=== PATIENT | female | born 1935 | race Asian ===

== ENCOUNTER 2016-09-12 01:45 | Emergency (ER) | payer OTHER ==
[2016-09-12 02:08] VITALS: BP 175/82
--- NOTE | 2016-09-12 02:49 | PROVIDER DOCUMENTATION ---
HPI-Respiratory General - General Chief Complaint: Shortness of Breath Stated Complaint: SOB Time Seen by Provider: 09/12/16 02:09 Source: patient Allergies/Adverse Reactions: Patient Allergies Allergy/AdvReac Type Severity Reaction Status Date / Time No Known Allergies Allergy Verified 09/05/16 06:05 Home Medications: Alendronate [Fosamax] 70 mg PO Q7D 08/22/13 FOSINOpril [Monopril] 20 mg PO DAILY 08/22/13 Fenofibric Acid [Fibricor] 135 mg PO DAILY 08/22/13 Nifedipine [Nifedipine ER] 30 mg PO DAILY 08/22/13 Ergocalciferol (Vitamin D2) [Vitamin D] 50,000 unit PO DAILY 11/01/14 Fluticasone 50 Mcg Nasal [place] [Flonase] 1 spray DIRK DAILY 11/01/14 Guaifenesin/Pse E.r. [Mucinex D] 1 each PO DAILY 11/01/14 Levofloxacin 500 mg PO DAILY 11/01/14 Metoclopramide [Reglan] 5 mg PO DAILY 11/01/14 Metoprolol [Lopressor] 100 mg PO DAILY 11/01/14 PRAVAstatin [Pravachol] 80 mg PO QHS 11/01/14 - History of Present Illness-Resp Nature of Presenting Problem: 80 year old F presents to the ED with a cc of shortness of breath. Pt states that she woke short of breath. PT states that she took 2 Tylenol and started breathing fast. PT states that she now feels better. PT states that she has left fractured ribs. PT states that she was also suppose to have her mary removed today. Severity in ED: reports: mild Onset/Duration: reports: this morning Timing: reports: still present Exposure: reports: unknown cause Cough Quality/Degree: reports: no cough Episode Frequency: no prior episodes Current Respiratory Medication Therapy: Initiated see nurses note Associated Symptoms: reports: short of breath Similar Symptoms Previously?: No Recently seen or treated by another doctor?: Yes Review of Systems - Adult - REVIEW OF SYSTEMS - ADULT Constitutional: denies: chills, fever Eyes: reports: no symptoms reported Ears, Nose, Mouth & Throat: reports: no symptoms reported Cardiovascular: reports: no symptoms reported Respiratory: reports: shortness of breath. denies: cough Gastrointestinal: denies: nausea, vomiting Genitourinary: reports: no symptoms reported Musculoskeletal: denies: muscle aches, muscle weakness Integumentary: denies: skin sores/ulcer, skin thickening Neurological: reports: no symptoms reported Psychiatric: reports: no symptoms reported Endocrine: reports: no symptoms reported Hematologic/Lymphatic: reports: no symptoms reported Allergic/Immunologic: reports: no symptoms reported All Other Systems: Reviewed and Negative Past History - Adult - PAST MEDICAL HISTORY-ADULT Review of Records: reports: Nursing Assessment Review, Medications Reviewed Major Childhood Illnesses: reports: denies history Cardiovascular: reports: HTN, hyperlipidemia Musculoskeletal: reports: arthritis (osteo) - PRIOR SURGERIES/PROCEDURES Surgical/Procedure History: reports: none - IMMUNIZATION STATUS Childhood Immunizations: See Nurse Assessment Flu Vaccine: See Nurse Assessment - FAMILY HISTORY Family History: reviewed, not pertinent - SOCIAL HISTORY Smoking: non-smoker Substance Use: none/never Alcohol Use Frequency: never Physical Exam-General - PHYSICAL EXAM-ADULT Initial Vital Signs Reviewed: Yes - CONSTITUTIONAL General Appearance: appears well, alert, no apparent distress - HEAD, EARS, NOSE, MOUTH & THROAT HENMT: other (mary to scalp, well healed) - RESPIRATORY Respiratory: lungs clear, normal breath sounds, other (left ribs along axillary line) - CARDIOVASCULAR Cardiovascular: normal peripheral pulses, regular rate, rhythm, no edema - MUSCULOSKELETAL Extremity: normal inspection - SKIN Integumentary: normal color, normal turgor, warm/dry - PSYCHIATRIC Psych/Mental Status: normal mood/affect, normal thought content, normal thought process, oriented x 3 Progress - PLAN OF CARE/RESULTS Progress/Plan/Lab Results: plan of care: imaging, EKG, staple removal Orders Category Date Time Status CHEST-2 VIEWS [RAD] Stat Exams 09/12/16 02:11 Taken EKG [EKG] Stat Ther 09/12/16 01:54 Ordered Vital Signs - 24 hr 09/12/16 02:04 Temperature 97.6 F Pulse Rate 70 Respiratory 18 Rate Blood Pressure 175/82 O2 Sat by Pulse 99 Oximetry Pt given results and will be d/c home w/o rx to follow up with PCP. Pt verbally understood instructions. PT remained clinically stable throughout the course of the ED stay and will return if symptoms worsen. - EKG 1 Time of EKG reading by physician:: 02:00 EKG Read and Signed by:: Lokesh F. O'Meara EKG Interpretation (*Must complete 3 of following elements*): Normal Rate: 73 Rhythm: NSR [place]: normal - XRAY 1 XRAY Study: Chest Impression: Abnormal (L fractured ribs and distal clavical fx as noted before, small left pleural effusion:Dr. Cabral) Departure - Departure Time of Disposition Order: 02:51 DIAGNOSIS: Rib fractures Qualifiers: Encounter type: subsequent encounter Rib fracture type: multiple ribs Fracture type: closed Laterality: left Fracture healing: with routine healing Qualified Code(s): S22.42XD - Multiple fractures of ribs, left side, subsequent encounter for fracture with routine healing Disposition: HOME 01 Certified Medical Emergency: Emergent Condition: Good Additional Instructions: Follow up with primary care doctor. Return to ED for any new or worsening symptoms. ED Follow Up Instructions: You have been treated by a care provider in the Emergency Department. These instructions are being provided to you so you can have an understanding of how to care for yourself upon discharge. Upon discharge from the Emergency Department, you are responsible for making arrangements for follow-up care by a physician of your choice. Take all prescribed medications as directed. Return to the Emergency Department immediately for any new or worsening symptoms. You may call the Physician Referral phone number at [phone] to obtain a list of Physicians who are taking new patients. Referrals: Rashad Cassidy Jr, MD [Primary Care Provider] - Attestation - Scribe Verification/Attestation Scribe:: Vee Lambert Acting as Scribe for:: Lokesh Cabral Scribe documention review:: This chart was documented by a scribe and accurately reflects the service the provider performed and the decisions made by the provider. Physician Attestation - Physician Attestation I, the provider, attest to the following statement:: Lokesh Cabral Physician documentation Attestation:: This documentation recorded by the scribe accurately reflects the service I personally performed and the decisions made by me.
--- NOTE | 2016-09-12 05:50 | EKG Report ---
Test Performed on : 09/12/2016 02:00:10 AM Test Reason : SOB Blood Pressure : / mmHG Vent. Rate : 073 BPM Atrial Rate : 073 BPM P-R Int : 178 ms QRS Dur : 084 ms QT Int : 398 ms P-R-T Axes : 042 -09 051 degrees QTc Int : 438 ms Normal sinus rhythm. Normal ECG When compared with ECG of 01-NOV-2014 02:34, No significant change was found Unconfirmed Result
--- NOTE | 2016-09-12 09:03 | Diag Imaging Result Document ---
PROCEDURE NAME: CHEST-2 VIEWS - 09/12/2016 PA AND LATERAL RADIOGRAPHS OF THE CHEST: COMPARISON: 09/05/2016. FINDINGS: Healing left rib fractures are again noted, stable. There is trace pleural fluid at the left lung base. There is no evidence of pneumothorax. There has been development of mild linear atelectasis at the right lung base. Cardiac silhouette and central vasculature are unremarkable. IMPRESSION: Development of trace pleural fluid on the left and minimal subsegmental atelectasis at the right lung base.
== END 2016-09-12 03:02 | disposition home or self-care (01) ==
LOC: ED 01:45
DX: S22.42XD Multiple fractures of ribs, left side, subsequent encounter for fracture with routine healing (principal); R06.02 Shortness of breath; I10 Essential (primary) hypertension; E78.5 Hyperlipidemia, unspecified; M19.90 Unspecified osteoarthritis, unspecified site; Z79.899 Other long term (current) drug therapy; Z79.51 Long term (current) use of inhaled steroids; J90 Pleural effusion, not elsewhere classified; J98.11 Atelectasis
CPT/HCPCS: 71020; 93005; 99283

== ENCOUNTER 2019-06-07 18:17 | Observation (INO) ==
[2019-06-07] MEDS ORDERED: CATAPRES PO ONE (18:34)
[2019-06-07 20:30] LABS: BASO# 0.03 X1000 (0.0-0.2); BASO% 0.3 % (0.0-0.8); EOS# 0.09 X1000 (0.0-0.7); HEMATOCRIT 41.4 % (37.0-47.0); HEMOGLOBIN 13.6 g/dL (12.0-16.0); LYMPH# 4.54 X1000 (1.2-3.4); LYMPH% 51.9 % (20.5-51.1); MCH 29.8 PG (27-31); MCHC 32.9 g/dL (33-37); MCV 90.6 FL (81-99); MONO# 0.66 X1000 (0.11-0.59); MONO% 7.6 % (1.7-9.3); MPV 9.9 FL (7.4-10.4); NEUT# 3.42 X1000 (1.4-6.5); NEUT% 39.2 % (42.2-75.2); PLT 262 X1000 (130-400); RBC 4.57 XMIL (4.2-5.4); RDW 13.9 % (11.5-14.5); WBC 8.74 X1000 (4.8-10.8)
[2019-06-07 20:37] LABS: INR 0.96; PROTIME 12.8 Seconds (11.0-16.0); PTT 31.8 Seconds (22.3-41.8)
[2019-06-07 20:55] LABS: ALB/GLOB RATIO 1.6; ALBUMIN 4.2 g/dL (3.5-5.0); CALCIUM 9.6 mg/dL (8.8-10.2); CREATININE 1.4 mg/dL (0.5-0.9); POTASSIUM 4.4 mmol/L (3.5-5.1); TOTAL BILIRUBIN 0.35 mg/dL (0.20-1.00); TOTAL PROTEIN 6.8 g/dL (6.3-8.3)
--- NOTE | 2019-06-07 21:11 | PROVIDER DOCUMENTATION ---
This chart was entered by Meron Roblero Scribe, acting as scribe for Yvette Gimenez MD. HPI-General Adult - General Chief Complaint: Low Blood Sugar Stated Complaint: LOW BLOOD SUGAR, Time Seen by Provider: 06/07/19 18:33 Source: patient, family Allergies/Adverse Reactions: Patient Allergies Allergy/AdvReac Type Severity Reaction Status Date / Time Sulfa (Sulfonamide Allergy Unknown Verified 06/07/19 19:23 Antibiotics) Home Medications: Home Medication List Medication Instructions Recorded Confirmed Last Taken Type Krill/Om-3/Dha/Epa/Phospho/Ast 1 cap PO DAILY 12/01/16 06/07/19 06/07/19 History [Krill Oil 500 mg Softgel] Metoprolol Succinate 100 mg PO BID 12/01/16 06/07/19 06/07/19 History Nifedipine [Nifedipine ER] 30 mg PO DAILY 12/01/16 06/07/19 06/07/19 History Rosuvastatin Calcium [Crestor] 40 mg PO QHS 12/01/16 06/07/19 06/06/19 History Ezetimibe [Zetia] 1 tab PO DAILY 08/02/18 06/07/19 06/07/19 History Sitagliptin [Januvia] 1 tab PO DAILY 08/02/18 06/07/19 06/07/19 History Glimepiride 1 dose PO BID 06/01/19 06/07/19 06/07/19 History Pioglitazone [Actos] 1 dose PO DAILY 06/01/19 06/07/19 06/07/19 History - History of Present Illness -Gen Adult Nature of Presenting Problems: 83 yof presents w/daughter at bedside w/cc low fsbs ongoing for few days. daughter sts pt fsbs other day was 34. pt took fbs at 1200 and it was 150. around 1300 ate potatoes and a hot dog, became dizzy, ate cereal and shrimp trawler captain fsbs was 20. pt had pepsi and tsp sugar shrimp trawler captain and is improving. pt sts she felt near syncope. pt has hx of dm, htn and high cholesterol. pt takes januvia, actos and glimeperide for dm.she was just started on one of these medications about 1 month ago and her symptoms started around then/ daughter sts pt was recently d/c from hospital for what dr's thought was possible tia's. pt had US of thyroid done and found nodules. will follow up w/dr. layo rodriguez. pt is a&ox3 and nontoxic in appearance. Location of Pain/Injury: reports: none Pain Radiation: reports: no radiation Quality of Pain: reports: none Onset/Duration: reports: this afternoon Timing: reports: improving, gone now Context/Activities at Onset: reports: none Associated Symptoms: reports: dizziness - Diabetes Related Context Context: reports: low blood sugar Review of Systems - Adult - REVIEW OF SYSTEMS - ADULT Constitutional: reports: no symptoms reported. denies: chills, fever, fatique Eyes: reports: no symptoms reported Ears, Nose, Mouth & Throat: reports: no symptoms reported Cardiovascular: reports: no symptoms reported Respiratory: reports: no symptoms reported Gastrointestinal: reports: no symptoms reported Genitourinary: reports: no symptoms reported Musculoskeletal: reports: no symptoms reported Integumentary: reports: no symptoms reported Neurological: reports: see HPI, dizziness/vertigo, syncope (near). denies: loss of balance, numbness, paresthesia Psychiatric: reports: no symptoms reported Endocrine: reports: see HPI, other (low fsbs 20 shrimp trawler captain). denies: increased hunger, increased thirst, polyuria Hematologic/Lymphatic: reports: no symptoms reported Allergic/Immunologic: reports: no symptoms reported All Other Systems: Reviewed and Negative Past History - Adult - PAST MEDICAL HISTORY-ADULT Review of Records: reports: Old Records Reviewed, Nursing Assessment Review, Medications Reviewed, Social history reviewed & non-contributory. Major Childhood Illnesses: reports: denies history Cardiovascular: reports: HTN, hyperlipidemia Respiratory: reports: denies history Gastrointestinal: reports: denies history Obstetrical/Gynecological: reports: denies history Genitourinary: reports: denies history Musculoskeletal: reports: arthritis (osteo) Neurological: reports: denies history Psychiatric: reports: denies history Endocrine/Immune: reports: Diabetes Diabetes controlled by:: PO Meds Other Conditions: reports: denies history - PRIOR SURGERIES/PROCEDURES Surgical/Procedure History: reports: none - IMMUNIZATION STATUS Childhood Immunizations: See Nurse Assessment Flu Vaccine: See Nurse Assessment - FAMILY HISTORY Family History: reviewed, not pertinent - SOCIAL HISTORY Smoking: non-smoker Substance Use: none/never Physical Exam-General - PHYSICAL EXAM-ADULT Initial Vital Signs Reviewed: Yes - CONSTITUTIONAL General Appearance: appears well, alert, no apparent distress, thin. negative: lethargic, slow to respond, obtunded - EYES Eyes: PERRL/EOMI, pink conjunctivae - HEAD, EARS, NOSE, MOUTH & THROAT HENMT: normocephalic/atraumatic, moist mucous membranes - NECK Neck: non-tender, full range of motion, supple, normal inspection - RESPIRATORY Respiratory: chest non-tender, lungs clear, normal breath sounds, no respiratory distress, no accessory muscle use - CARDIOVASCULAR Cardiovascular: normal peripheral pulses, regular rate, rhythm, no murmur - GASTROINTESTINAL (ABDOMEN) Abdominal Exam: normal bowel sounds, non tender, soft - LYMPHATIC Lymphatic: no adenopathy - MUSCULOSKELETAL Back Exam: normal inspection Extremity: normal range of motion, non-tender, normal gait, normal inspection Peripheral Pulses: radial (R): 2+, radial (L): 2+ - SKIN Integumentary: normal color, normal turgor, warm/dry - NEUROLOGIC Neurologic: grossly normal, no motor/sensory deficits - PSYCHIATRIC Psych/Mental Status: normal mood/affect, normal thought content, normal thought process, oriented x 3 Progress - PLAN OF CARE/RESULTS Progress/Plan/Lab Results: Vital Signs - 8 hr 06/07/19 18:39 Temperature 97.9 F Pulse Rate 78 Respiratory Rate 16 Blood Pressure 157/82 O2 Sat by Pulse Oximetry 99 Laboratory Results - last 24 hr 06/07/19 18:42 POC Glucose 129 H D Orders Category Date Time Status Blood Glucose Finger Stick [FSBS/Accucheck Result] Q1H Care 06/07/19 19:48 Active ED: Orthostatic Vital Signs (E as directed Care 06/07/19 19:48 Active CBC WITH ELECTRONIC DIFF [HEME] Stat Lab 06/07/19 19:47 Uncollected COMPREHENSIVE METABOLIC PANEL [CHEM] Stat Lab 06/07/19 19:47 Uncollected PROTIME WITH INR [COAG] Stat Lab 06/07/19 19:47 Uncollected PTT [COAG] Stat Lab 06/07/19 19:47 Uncollected TROPONIN T Stat Lab 06/07/19 19:47 Uncollected Clonidine [Catapres] Med 06/07/19 18:34 Discontinued 0.2 mg PO NOW ONE EKG [EKG] Stat Ther 06/07/19 19:47 Ordered Patient on glimepiride, Actos and januvia with hypoglymcemia at home. Given that she is on oral agents will need admission for oBS. Her recent admission for TIAs could actually be 2.2 to hypoglycemia at she stts that this medication was just started 1 month ago and she started to feel symptoms then. Labs showing nothing acute. COunseled patient and family on the need for admission and they agreed. Patient stable for floor. Spoke to Dr Crenshaw weekend receptionist for hospitalist who accepted patient for admission. Further orders to be placed by their team. Result Diagrams: 06/07/19 20:17 06/07/19 20:17 - EKG 1 Time of EKG reading by physician:: 21:05 EKG Read and Signed by:: Yvette Gimenez EKG Interpretation (*Must complete 3 of following elements*): Normal Rate: 74 Rhythm: NSR [place]: normal QRS: normal CO Interval: normal ST Wave: normal - CONSULTS/PCP/HOSPITALIST Notification #1 *Consult/PCP/Hospitalist*: Dr Crenshaw Time Discussed: 21:10 Consult Disposition: Admit Departure - Departure Date of Disposition Decision: 06/07/19 Time of Disposition Decision: 21:09 DIAGNOSIS: Hypoglycemia secondary to sulfonylurea Qualifiers: Encounter type: initial encounter Injury intent: accidental or unintentional Qualified Code(s): T38.3X1A - Poisoning by insulin and oral hypoglycemic [antidiabetic] drugs, accidental (unintentional), initial encounter Disposition: ADMITTED INPATIENT Certified Medical Emergency: Emergent Condition: Stable - Critical Care Note This patient required my direct & personal management of CC.: No Attestation - Physician/ ADRIA Attestation Patient care was provided by Advanced Practice Provider:: No The physician spent face to face time with patient:: Yes Advanced Practice Provider documentation review:: Supervising physician onsite and consulted in the evaluation and care of this patient. The physician did have a face to face encounter with the patient. This chart was documented by the indicated scribe, (Meron Roblero Scribe) and accurately reflects the services I performed and decisions made by me, Yvette Gimenez MD, as attested by the provider's signature.
--- NOTE | 2019-06-07 21:23 | EKG Report ---
Test Performed on : 06/07/2019 9:01:04 PM Test Reason : LOW BLOOD SUGAR Blood Pressure : / mmHG Vent. Rate : 074 BPM Atrial Rate : 074 BPM P-R Int : 190 ms QRS Dur : 082 ms QT Int : 394 ms P-R-T Axes : 037 -11 035 degrees QTc Int : 437 ms Normal sinus rhythm. Normal ECG When compared with ECG of 01-JUN-2019 12:05, (Unconfirmed) Criteria for Septal infarct are no longer present Unconfirmed Result
--- NOTE | 2019-06-07 22:06 | HISTORY AND PHYSICAL ---
PRIMARY CARE PHYSICIAN: Dr. Cassidy. CHIEF COMPLAINT: Low blood glucose. HISTORY OF PRESENTING ILLNESS: This 83-year-old elderly female with a history of diabetes mellitus type 2, hypertension, hyperlipidemia, who had presented to emergency department due to patient having an episode where her blood glucose was low. The patient states her blood glucose was around 20 and she felt kind of woozy. Her daughter gave her a Pepsi and some sugar and then she seemed to improve and subsequently had brought her to the emergency department. She was evaluated in the ED and due to the fact that she is on oral hypoglycemics it was thought that will place in for observation for further evaluation and management. At the time of my examination, patient denied any headache, fever, chills, chest pain, shortness of breath, hemoptysis, melena, weight changes. States she feels better. PAST MEDICAL HISTORY: Include diabetes mellitus type 2, hypertension, hyperlipidemia. PAST SURGICAL HISTORY: None. ALLERGIES: Sulfa. CURRENT MEDICATIONS: Include Zetia 10 mg p.o. daily, glimepiride 4 mg p.o. b.i.d., metoprolol 100 mg p.o. b.i.d., nifedipine 30 mg p.o. daily, Actos 15 mg p.o. daily, rosuvastatin 40 mg p.o. at bedtime, Januvia 50 mg p.o. daily. SOCIAL HISTORY: No history of smoking, alcohol or illicit drug use. FAMILY HISTORY: Positive for coronary disease mother. REVIEW OF SYSTEMS: Fourteen point review of system is as in HPI. Other systems negative. PHYSICAL EXAMINATION: GENERAL: Cooperative, friendly female. She is resting comfortably now. VITAL SIGNS: Temperature 97.9 degrees, pulse 78, respirations 16, blood pressure 157/82. HEENT: Atraumatic, normocephalic. Extraocular movements intact. PERRLA. NECK: Supple. CHEST: Clear to auscultation. CARDIOVASCULAR: Regular rate and rhythm. ABDOMEN: Soft. Positive bowel sounds. EXTREMITIES: No edema. NEURO: Nonfocal. : No bladder distention. SKIN: Warm. LABORATORIES AND STUDIES: WBC 8.74, hemoglobin 13.6, hematocrit 41.4, platelets 262,000. Sodium 141, potassium 4.4, chloride 104, CO2 24, BUN is 25, creatinine is 1.4, glucose is 226. ASSESSMENT: 83-year-old female with a history of diabetes mellitus type 2, hypertension, hyperlipidemia, who had presented to the emergency department due to patient having hypoglycemic episode. Apparently her blood glucose had come down to around 20s. She took some sugar and Pepsi and she had some improvement. She was evaluated in the emergency department. Due to patient being on oral hypoglycemic agents it was thought that will place in for observation for further evaluation management. 1. Diabetes mellitus type 2 with hypoglycemic episode. 2. Hypertension. 3. Hyperlipidemia. PLAN: 1. We will admit patient to medical floor with telemetry. 2. Continue to monitor blood glucose closely. 3. We will hold oral hypoglycemic agents. 4. Monitor blood pressure. Resume antihypertensive agent. 5. Restart other home medications. 6. Put patient on DVT prophylaxis SCD. 7. We will continue to follow reassess, make further recommendation based on patient's clinical course. cc: Aj Crenshaw MD
[2019-06-08] MEDS: TOPROL XL PO SCH ×3 (01:02→20:19)
[2019-06-08] MEDS: NS 1,000 ML IV SCH ×2 (01:02→12:46)
[2019-06-08] MEDS: CRESTOR PO SCH ×2 (01:03→20:19)
[2019-06-08] MEDS: ADALAT CC PO SCH (08:24)
[2019-06-08] MEDS: ZETIA PO SCH ×3 (08:25→08:28)
--- NOTE | 2019-06-08 09:11 | PROGRESS NOTE ---
DATE: 06/08/2019 SUBJECTIVE: The patient says she does not feel well. Blood sugars are still jumping around a good bit. Family members were there, including a son and a daughter, and we talked about alternative medications for her diabetes. She has been on Amaryl, Actos, and Januvia. She could not tolerate metformin, and did not want any further brand name medications initially. It is possible now with help of the family that she maybe can take something like Farxiga or Jardiance, but I will get a GFR to check this. She does have a little mild renal failure. Looking out, unfortunately she has got a GFR of 36, so she does not meet the criteria for the other medications. We might consider something like Bydureon, where she only had to take one shot a day, or Trulicity. OBJECTIVE: Vital Signs: Blood pressure is 162/72, respirations 18, pulse 77, temperature 98.3 degrees Fahrenheit. HEENT: She is normocephalic. EOM intact. PERRLA. Throat clear. Lungs: Clear to auscultation and percussion without rhonchi, rales, or wheezes. Heart: Regular rate and rhythm without murmurs, gallops, friction rubs. Abdomen: Soft. Active bowel sounds. No organomegaly or tenderness. Neurological: Intact grossly. LABORATORY DATA: Blood sugars have been jumping around. After having a blood sugar of 20, it went up to 222, then to 140, but then dropped back down to 46 at one time. The last one was 140. I think we do need to watch this until Amaryl gets out of her system. We had decreased her Actos because of swelling. We might reconsider that. ASSESSMENT: 1. Hypoglycemia. 2. Diabetes mellitus. 3. Chronic kidney disease. 4. Coronary artery disease. PLAN: Continue to watch. cc: Rashad Cassidy Jr, MD
[2019-06-09 08:20] VITALS: BP 141/70
[2019-06-09] MEDS: ADALAT CC PO SCH (09:26)
[2019-06-09] MEDS: ZETIA PO SCH (09:26)
[2019-06-09] MEDS: TOPROL XL PO SCH (09:26)
--- NOTE | 2019-06-10 05:54 | DISCHARGE SUMMARY ---
ADMISSION DATE: 06/07/2019 DISCHARGE DATE: 06/09/2019 FINAL DIAGNOSES: 1. Hypoglycemia. 2. Diabetes mellitus. 3. Hypertension. 4. Hyperlipidemia. 5. Coronary artery disease. DISCHARGE MEDICATIONS: The discharge medications will be her home medications but she is to not take her glimepiride. PRESENT ILLNESS: Patient is an 83-year-old oriental female, who came in with hypoglycemic episodes. Her blood sugar was around 20 at home, and ambulance was called. She was given IV sugar, and blood sugars did come up. She was admitted, but her blood sugar dropped back down to the 40s again. We have held her diabetic medications thus far. Blood sugars today are running in the 70s and 80s. She had changed her diet considerably decreasing her starches and sugars. We talked about different options for her diabetes. She cannot tolerate metformin. She can take the Actos at a low dose, and she can take Januvia. We might consider something like Trulicity or Farxiga in the future. Her GFR was 36, and the recommendation is to have a GFR of 45 or greater. Some are using those medications with a GFR as low as 30. I discussed this with family members. The patient is feeling much better now. DISCHARGE EXAMINATION: Vital signs: Blood pressure 141/70, respirations 20, pulse 67, and temperature 98 degrees Fahrenheit. HEENT: She is normocephalic. EOMS intact. PERRLA. Throat clear. Lungs: Clear to auscultation and percussion without rhonchi, rales, or wheezes. Heart: Regular rate and rhythm without murmurs, gallops, or friction rubs. Abdomen: Soft. Active bowel sounds. No organomegaly or tenderness. Neurologic: Exam is intact grossly. Blood sugar the last one was 93. PLAN: We will discharge home. We will see her back in the office within a week. She is to hold her Amaryl, but may restart her Januvia and her Actos. We will see her in the office and do a 2 hour postprandial blood sugar, and see how her sugars are doing. cc: Rashad Cassidy Jr, MD
== END 2019-06-09 10:19 | disposition home or self-care (01) ==
LOC: ED 18:17 → INTOOBSV 22:34 → 3N 22:34
PROVIDERS: ADMIT Emergency Medicine; ATTEND Emergency Medicine